=== PATIENT | male | born 1965 | race Caucasian/White ===

== ENCOUNTER 2019-04-18 10:15 | Observation (INO) ==
--- NOTE | 2019-04-04 12:59 | Anesthesiology Consultation ---
Date of Service April 04, 2019 Assessment & Plan Chart Review Chart Review: Acceptable Risk for Surgery and Patient NOT seen in Pre Admission Testing Consults Requested none History Surgery Operation Date: 04/18/19 13:10 Proposed Procedures p Right Shoulder Arthroscopy with Rotator Cuff Repair, Possible Superior Capsular Reconstruction - Ok Song MD Height/Weight Height: 5 ft 7 in Weight: 78.471 kg Allergies Allergy/AdvReac Type Severity Reaction Status Date / Time No Known Allergies Unverified 03/26/19 09:42 Medications Home Medications Medication Instructions Recorded Confirmed Last Taken fluticasone propionate 50 1 sprays INTNAS BID #9.9 gm 02/26/19 03/26/19 Unknown mcg/actuation nasal spray,suspension neomycin 3.5 mg-polymyxin 10,000 1 drops OP BID #7.5 ml 02/26/19 03/26/19 Unknown unit-hydrocort 10 mg/mL eye drop,susp Past Medical History Medical History No known health problems Past Surgical History Surgical History No history of previous surgery Social History Smoking Status: Never smoker Do You Dip or Chew Tobacco: No Hx Alcohol Use: Yes Alcohol type: beer, wine and hard liquor alcohol intake frequency: a few times a month Hx Substance Use: No substance use type: does not use Testing Laboratory Results WBC 6.34 H/H 14.5/42.5 PLT 247 NA 138 K 3.9 CL 104 CO2 26 BUN 22 CREATININE 1.24 GLUCOSE 90 Electrocardiogram Date: 03/29/19 Findings: + NSR @ (70 bpm) Chest X-Ray Date: 03/29/19 Findings: + NAD
--- NOTE | 2019-04-17 19:23 | History and Physical Report ---
DATE OF ADMISSION: 04/18/2019 CHIEF COMPLAINT: Chronic right shoulder pain. HISTORY OF PRESENT ILLNESS: This is a 53-year-old male patient of Dr. Song'lars complaining of chronic right shoulder pain and weakness, longstanding, now progressively getting worse. The patient has had multiple injuries, most recently in January, when he had a confrontation with a horse and his arm got pulled away from his body. MRI confirmed rotator cuff tear. The patient wished to proceed with a right shoulder arthroscopic rotator cuff repair versus possible superior capsular reconstruction. PAST MEDICAL HISTORY: The patient is a healthy 53-year-old male with no health problems. SOCIAL HISTORY: Nonsmoker, occasional drinker. PAST SURGICAL HISTORY: Negative. FAMILY HISTORY: Noncontributory. REVIEW OF SYSTEMS: Chronic right shoulder pain with an acute on chronic trauma and weakness. Otherwise, denies any shortness of breath, chest pain, nausea, vomiting or any other joint complaints. MEDICATIONS: Fluticasone propionate as directed and neomycin to the affected eye as directed. ALLERGIES: No known drug allergies. PHYSICAL EXAMINATION: GENERAL: Well-developed, well-nourished 53-year-old male in no acute distress. He is alert and oriented x3 and pleasant. HEENT: Normocephalic, atraumatic. Extraocular motions are intact. Pupils are equal and reactive to light. HEART: Regular rate and rhythm, no murmurs. LUNGS: Clear. ABDOMEN: Soft, nontender, bowel sounds present. EXTREMITIES: Right shoulder reveals full range of motion with pain. He has 3/5 strength with internal and external rotation. He has a positive belly press test. He has positive impingement maneuvering. NEUROLOGIC: Neurovascularly he is intact in his right upper extremity. DIAGNOSIS: Right shoulder rotator cuff tear. PLAN: The patient was advised of his diagnosis. Indications, risks, benefits, postop course have all been reviewed. The patient wished to proceed with a right shoulder arthroscopic rotator cuff repair with possible superior capsular reconstruction. Necessary consent forms, preoperative testing and clearances will be obtained.
[~2019-04-18 10:15] MED LIST: CEFAZOLIN 1000MG 1,000 MG/7.5 ML SYR IV SCH; LR 15ML/HR IV SCH; ROPIVACAINE 0.5% 5 MG/ML 30 ML VIAL ONE
[2019-04-18] MEDS ORDERED: PROPOFOL IV EMULSION 10 MG/ML 20 ML VIAL IV ONE (11:01)
[2019-04-18] MEDS ORDERED: fentaNYL citrate 100 MCG/2 ML VIAL ONE ×3 (11:01→19:09)
[2019-04-18] MEDS ORDERED: LIDOCAINE HCL 2% 2 ML VIAL/AMP(20MG/ML) INFIL ONE (11:01)
[2019-04-18] MEDS ORDERED: ROCURONIUM BROMIDE 10 MG/ML 5 ML VIAL ONE (11:01)
[2019-04-18] MEDS ORDERED: ONDANSETRON INJ 2 MG/ML 2 ML VIAL ONE ×2 (11:01→17:51)
[2019-04-18] MEDS ORDERED: MIDAZOLAM HCL 1 MG/ML 2ML VIAL ONE (11:01)
[2019-04-18] MEDS ORDERED: ATROPINE SULFATE 0.1 MG/ML 10ML SYR IV PRN (12:02)
[2019-04-18] MEDS ORDERED: ONDANSETRON INJ 2 MG/ML 2 ML VIAL IV PRN ×2 (12:02→20:30)
[2019-04-18] MEDS ORDERED: ePHEDrine sulfate 50 MG/ML AMP IV PRN (12:02)
--- NOTE | 2019-04-18 13:11 | History & Physical Bridge Note ---
Date of Service April 18, 2019 History & Physical Bridge Note I have examined the patient, reviewed the History & Physical and in the interval since the performance of the History & Physical I have noted the following changes of clinical significance: no changes noted
[2019-04-18] MEDS ORDERED: EPINEPHrine HCL INJ 1 MG/ML 30ML ONE (13:32)
[2019-04-18] MEDS ORDERED: CEFAZOLIN 250 MG/ML 1 GM VIAL ONE (17:51)
[2019-04-18] MEDS ORDERED: DEXAMETHASONE SOD INJ 4 MG/ML VIAL ONE (17:51)
[2019-04-18] MEDS ORDERED: NEOSTIGMINE METHYLSULFATE 5 MG/5 ML SYR ONE (18:32)
[2019-04-18] MEDS ORDERED: GLYCOPYRROLATE 0.2 MG/ML VIAL ONE (18:32)
--- NOTE | 2019-04-18 18:47 | Post Operative Brief Note ---
Immediate Post Op Note v1 Date of Surgery April 18, 2019 Pre & Post Diagnosis Operation Date: 04/18/19 12:55 Pre-Op Diagnosis: Right shoulder subacute on chronic rotator cuff tear subacromial impingement Post-Op Diagnosis: Right shoulder chronic appearing rotator cuff tear Chronic Retracted Partially Irrepairable with Biceps Tendon Rupture Subacromial Impingement I identified the patient and participated in the time-out.: Yes Procedure Operation Date: 04/18/19 12:55 Actual Procedures p Right Shoulder Arthroscopy with Rotator Cuff Repair, Superior Capsular Reconstruction and Subacromial Decompression(Right) - Ok Song MD Surgeon Ok Song MD Field Service Rep Ronnie RODRIGUEZ Estimated Blood Loss 20 Findings Consistent with Post-Op Diagnosis Specimens None Drains Antonio Catheter Anesthesia Type General Regional Complications none Disposition Accompanied Patient To Recovery: No Disposition: Recovery Room Overlapping Procedure I was immediately available: during the entire case.
[2019-04-18] MEDS: fentaNYL citrate 100 MCG/2 ML VIAL IV PRN ×4 (19:15→19:30)
[2019-04-18] MEDS ORDERED: HYDROmorphone INJ 2 MG/ML SYR/VIAL ONE (19:35)
[2019-04-18] MEDS: HYDROmorphone INJ 2 MG/ML SYR/VIAL IV PRN ×4 (19:36→19:51)
--- NOTE | 2019-04-18 20:01 | Anesthesiology Progress Note ---
Date of Service April 18, 2019 Anesthesia Post Procedure Vital Signs Vital Signs: Temp Pulse Pulse Resp BP Pulse Ox 04/18/19 19:55 81 17 125/67 96 04/18/19 19:45 81 17 124/76 97 04/18/19 19:35 78 15 128/73 98 04/18/19 19:25 73 16 120/76 100 04/18/19 19:15 75 17 98 04/18/19 19:05 18 98 04/18/19 18:58 36.2 C L 74 21 115/49 L 98 04/18/19 10:43 36.9 C 79 20 155/94 H 98 Pain Intensity Right Upper Chest: Pain Intensity: 5 Transfer of Care Handoff Completed per policy Notes Mental Status: alert / awake / arousable and participated in evaluation Patient Amnestic to Procedure: Yes Nausea / Vomiting: adequately controlled Pain: adequately controlled Airway Patency, RR, SpO2: stable & adequate BP & HR: stable & adequate Hydration State: stable & adequate Anesthetic Complications: no major complications apparent and Pt Satisfied with anesthetic care Notes: Block is functioning well.
[2019-04-18] MEDS ORDERED: NALOXONE HCL 0.4 MG/1 ML VIAL/CARP IV PRN (20:30)
[2019-04-18] MEDS ORDERED: SODIUM CHLORIDE 0.9% 1000ML 1,000 ML IV SCH (20:30)
[2019-04-18] MEDS ORDERED: MAGNESIUM HYDROXIDE SUSP 30 ML UDC PO PRN (20:30)
[2019-04-18] MEDS ORDERED: bisacodyL 10 MG SUPP PR PRN (20:30)
[2019-04-18] MEDS: HYDROmorphone INJ 0.5 MG/0.5 ML SYR IV PRN (20:55)
--- NOTE | 2019-04-18 21:27 | Operative Report ---
DATE OF OPERATION: 04/18/2019 INDICATION FOR PROCEDURE: A 53-year-old male who lives an active lifestyle. He had an injury to his shoulder in January of this year. He was worked up later with x-rays and MRI. 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 He does not have any marked proximal migration of the humerus. He on MRI has a large retracted rotator cuff tear of the supraspinatus and infraspinatus, looks like there is still some anterior supraspinatus rotator interval tissue intact. The biceps tendon appears to be ruptured and his subscapularis tendon is clearly torn and retracted. He has some arthritis in the AC joint and glenohumeral joint and some impingement. 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 PREOPERATIVE DIAGNOSES: Massive retracted rotator cuff tear, supraspinatus, subscapularis, infraspinatus, biceps rupture, impingement and arthritis of glenohumeral and acromioclavicular joint. POSTOPERATIVE DIAGNOSES: Chronic appearing rotator cuff tear with no components of any obvious acute tear with a subscapularis tendon tear with retraction, partially intact supraspinatus with otherwise retracted supraspinatus and infraspinatus tendons, which were irrepairable with subacromial impingement and mild arthritis of glenohumeral joint and acromioclavicular joint. Acromioclavicular joint is not causing any impingement. PROCEDURE: Right shoulder arthroscopic repair of the subscapularis tendon of the rotator cuff with superior capsular reconstruction using Arthrex human dermal skin graft with subacromial decompression and extensive debridement. SURGEON: Ok Song MD. DOWEL MACHINE OPERATOR: Ronnie Brooke PA-C. ANESTHESIA: Regional block and general. ESTIMATED BLOOD LOSS: 20 mL. DRAINS: None. Antonio catheter was placed. COMPLICATIONS: None. OPERATIVE PROCEDURE: The patient was taken to the operating room. A Antonio catheter was placed. Also placed under general and regional block anesthetic. He was positioned on a [facility] shoulder table in 70 degree beach chair position and his right shoulder was examined and demonstrated good passive range of motion. His right upper extremity was prepped and draped with ChloraPrep in usual sterile fashion. Arthroscopy was started with posterior arthroscopy portal in the soft spot. There was noted immediately that he had a large subscapularis tendon tear, so we made anterior lateral portal so we could access the subscapularis and a second anterior rotator interval portal for this portion of the procedure. Two arthroscopic working cannulas were placed. Subscapularis tendon was fairly thick tendon tissue and there was a thick comma tissue attached to the retracted supraspinatus tendon tear. The subscapularis tendon tissue in the upper portion was fairly thick, the lower portion was thin and attenuated, and the tear was retracted past the edge of the glenoid. There was a strip of supraspinatus tendon tissue anteriorly in the rotator interval area that was still attached to the greater tuberosity. This was maybe 1 cm to 15 mm wide, a thin type tissue there. The biceps tendon was torn and retracted. There were some mild degenerative changes of the labrum, mild osteoarthritis in the joint, significant subacromial bursitis. There was a thick CA ligament. He had type 1-2 acromion and had lateral subacromial spurs that were causing impingement. The AC joint was not causing any impingement. The teres minor was still intact. The entire infraspinatus was torn and retracted medially and the vast majority of the supraspinatus was torn and retracted medially except for the strand that we already discussed. Attention was first taken to the subscapularis repair. I prepared the footprint of the subscapularis of the lesser tuberosity arthroscopically using a suction shaver device and radiofrequency ablator. I released scarred bursa tissue on the bursal side of the subscapularis using a radiofrequency ablator and a suction shaver. We used an ablator to do capsular release underlying the subscapularis taking care not to go low below the muscular portion of the subscapularis to avoid injury to the axillary nerve. We stayed anteriorly on the bone of the glenoid. The base of the coracoid was ablated to release the capsule and scar tissue adjacent to the comma type tissue in the subscapularis so we could mobilize the subscapularis. When the subscapularis tendon was mobilized adequately to place a suture tape around it, I used an Arthrex SutureTape, placed through the bulk of the subscapularis tendon, placed traction on that, did more releases until we were able to mobilize the subscapularis, so we could pull the tendon over to just beyond the articular margin in neutral alignment. The second suture tape was placed in similar fashion and both suture tapes were placed out through an anterior cannula, then we switched the scope to the lateral portal and placed an Arthrex 5.5 x 19 mm SwiveLock BioComposite anchor in the footprint of the subscapularis to place the 2 tapes that I originally placed through this anchor and then it was fully seated and screwed tight and excess tapes were cut off to repair the subscapularis back to the lesser tuberosity. After that was completed, we went ahead and did a thorough subacromial debridement and identified intact the teres minor and irreparable posterior supraspinatus and infraspinatus, so we proceeded with the superior capsular reconstruction portion of the procedure. There were some significant bone spurs just posterior to the anterior most aspect of the acromion directed to the very lateral undersurface of the acromion process and I felt that these were causing impingement. So we went ahead and used a 5.5 bur to perform a decompression in that area. We did not take down the CA ligament and did a generalized smoothing of the undersurface of the acromion only. We left the AC joint alone as it did not appear to be causing any impingement. The greater tuberosity was then prepared using suction shaver device and radiofrequency ablator to remove any soft tissue off the greater tuberosity from the articular margin out the lateral greater tuberosity. Then the superior labrum was resected to facilitate a better fixation of the grafts on the superior glenoid. Then, through multiple portal sites including an Neviaser portal and a posterior accessory portal and one of the anterior lateral portals, 3 anchors were placed in the superior glenoid. The first anchor was placed at the base of the coracoid. A second anchor was placed in the 12 o'clock position on the glenoid and these were BioComposite SutureTak knotless anchors, 3 x 12.7 mm anchors. We then placed the posterior anchor in the posterior glenoid just above the teres minor. The angle of trajectory actually entangled the suture of the middle anchor, so we had to remove the sutures of the middle anchor. We had to readjust the posterior anchor more posteriorly and inferiorly into a better position with good fixation there, which was the second 3 x 12.7 BioComposite Arthrex knotless suture anchor. It had good fixation. The top anchor was then exchanged for a PEEK knotless corkscrew suture anchor, which had good fixation through the previous anchor hole superiorly. Then, we had a good fixation on the glenoid side with all sutures placed. Then, attention was taken to placing the medial row fixation sutures for the graft in the area of the infraspinatus and supraspinatus footprint. Two 4.7 x 19 mm Arthrex BioComposite anchors were placed, loaded with suture tapes in each anchor. At this time, by using the arthroscopic measuring device and the sutures in the joint, we were able to measure distances between all the anchors and holding the arm in about 20 degrees of abduction, the distance between the glenoid and the greater tuberosity, so we could fashion our graft. We did work through the lateral portal using a PassPort cannula in addition to the previous clear working cannula that was placed anteriorly. The graft was then fashioned using a scalpel to cut into the appropriate dimensions, which were 40 mm anterior to posterior on the medial side, 35 mm from posterior lateral to the greater tuberosity anchor and then 35 mm between lateral anchors and 45 mm anteriorly. It is a trapezoidal type graft. The holes were placed in the graft for placement of the suture tapes and then the individual sutures were brought out through the PassPort cannula. A Scorpion suture passer was used to make horizontal mattress sutures through the medial edge of the graft x3 for the knotless anchors and the suture tapes were placed through the lateral aspect of the graft. Then, the slack was taken out of the individual sutures as we passed the graft with the Arthrex graft passer into the subacromial space. Then, each individual suture was slowly tightened until the graft was laid down over the superior glenoid. These knotless suture anchors were fully tightened rolling the graft up over the top of the glenoid with good fixation anterior, medial and posterior. Then, the soft tissue grasper was placed on the tapes and the tapes were brought through the graft fully and then lateral row fixation was performed placing anterior, posterior tapes into anterior and posterior 4.75 x 19 mm SwiveLock anchors. This fixed the graft laterally. Further suturing between the small intact supraspinatus tendon tissue and the anterior graft was performed with a #2 FiberWire using a Chin locking knot 3 reverse half hitches in alternating posts and the posterior suture was placed between the graft in the teres minor closing that interval with similar suture. There was a good trampoline effect with no impingement after complete fixation of the graft. The multiple portal sites were closed with 2-0 nylon sutures. There was fluid extravasation around the shoulder of moderate severity but circulation in the extremity was intact. The patient was placed into a pillow sling immobilizer and sterile dressings were applied to the shoulder after the wounds were closed. The patient tolerated the procedure well. MICHAEL Montaño was my first mate. He functioned as first mate for the entire procedure. He assisted in patient positioning, arm positioning, suture management throughout the procedure and assisted me as a first mate as necessary through all aspects of the procedure and will participate in postoperative care of the patient. I attest to the content of the Intraoperative Record and any orders documented therein. Any exception s are noted below.
[2019-04-18] MEDS: DOCUSATE SODIUM 100 MG CAP PO SCH (21:35)
[2019-04-18] MEDS: SENNA 8.6 MG TAB PO SCH (21:35)
[2019-04-18] MEDS: ACETAMINOPHEN 500 MG TAB PO SCH (21:36)
[2019-04-18] MEDS: ASPIRIN 81 MG ECTAB PO SCH (21:36)
[2019-04-18] MEDS: OXYCODONE HCL IR 5 MG TAB (IMMEDIATE RELEASE) PO PRN (21:38)
[2019-04-18] MEDS ORDERED: COUGH DROP (SUGAR FREE) LOZ 24 LOZ/1 BOX BUCCAL ONE (22:23)
[2019-04-19] MEDS: OXYCODONE HCL IR 5 MG TAB (IMMEDIATE RELEASE) PO PRN ×5 (01:56→19:50)
[2019-04-19] MEDS: ACETAMINOPHEN 500 MG TAB PO SCH ×3 (05:58→20:56)
[2019-04-19] MEDS: ASPIRIN 81 MG ECTAB PO SCH ×2 (08:44→20:56)
[2019-04-19] MEDS: DOCUSATE SODIUM 100 MG CAP PO SCH ×2 (08:44→20:56)
[2019-04-19] MEDS: MULTIVITAMIN TAB PO SCH (08:44)
--- NOTE | 2019-04-19 08:51 | Orthopedic Progress Note ---
Date of Service April 19, 2019 Assessment & Plan (1) Status post rotator cuff repair: POD #1, Right RCR and Superior Capsular Reconstruction Sling at all times, may loosen for elbow motion only. Pain control. No PT needed until follow up. Ice as needed. D/C today. Subjective POD #1, Doing well, pain controlled so far. Denies SOB, CP, N/V. Plans to return home on discharge. Physical Exam Physical Exam: Right shoulder dressings c/d/i, no drainage, drain in tact. Sling in tact, fingers mobile. Results & Data Vital Signs (Past 12 Hours) Vital Signs Temp Pulse Resp BP BP Pulse Ox 04/19/19 07:31 36.8 C 72 17 125/77 95 04/19/19 03:20 36.7 C 73 16 116/70 96 04/18/19 23:30 36.3 C L 82 16 126/75 94 04/18/19 22:30 36.6 C 83 20 134/82 96 04/18/19 21:30 36.2 C L 84 18 143/78 H 97 04/18/19 21:00 36.8 C 81 20 155/90 H 96
[2019-04-19] MEDS: HYDROmorphone INJ 0.5 MG/0.5 ML SYR IV PRN ×2 (14:11→21:16)
[2019-04-19] MEDS: SENNA 8.6 MG TAB PO SCH (20:56)
[2019-04-20] MEDS: ACETAMINOPHEN 500 MG TAB PO SCH (05:09)
[2019-04-20] MEDS: OXYCODONE HCL IR 5 MG TAB (IMMEDIATE RELEASE) PO PRN ×2 (05:09→12:35)
[2019-04-20] MEDS: DOCUSATE SODIUM 100 MG CAP PO SCH (08:18)
[2019-04-20] MEDS: MULTIVITAMIN TAB PO SCH (08:18)
[2019-04-20] MEDS: ASPIRIN 81 MG ECTAB PO SCH (08:18)
--- NOTE | 2019-04-20 11:05 | Orthopedic Progress Note ---
Date of Service April 20, 2019 Assessment & Plan (1) Status post rotator cuff repair: POD #2, Right RCR and Superior Capsular Reconstruction Sling at all times, may loosen for elbow motion only. Pain control. No PT needed until follow up. Ice as needed. D/C today. Subjective Patient currently sitting up in bed awake and alert. No complaints. Pain is controlled at this time. Patient is hoping to go home. Physical Exam Physical Exam: Dressings removed. Incision is benign. Good range of motion at the right elbow wrist and fingers. Sensation intact. Capillary refill is less than 2 seconds. Results & Data Vital Signs (Past 12 Hours) Vital Signs Temp Pulse Resp BP Pulse Ox 04/20/19 07:44 37.1 C 78 16 157/97 H 96 04/19/19 23:50 36.6 C 04/19/19 23:42 37.4 C 78 17 138/82 95
--- NOTE | 2019-04-30 16:28 | Discharge Summary ---
HISTORY OF PRESENT ILLNESS: This is a 53-year-old male patient of Dr. Song's complaining of chronic right shoulder pain and weakness, longstanding, now progressively getting worse. The patient has had multiple injuries, most recently in January. MRI confirmed rotator cuff tear. The patient wished to proceed with a right shoulder arthroscopic rotator cuff repair versus possible superior capsular reconstruction. PAST MEDICAL HISTORY: The patient is a healthy 53-year-old male with no health problems. POSTOPERATIVE COURSE: The patient underwent a right shoulder arthroscopy, subacromial decompression, rotator cuff repair and superior capsular reconstruction on 04/18/2019. He was followed closely with medical consultation and pain control. No physical therapy at this point in time. The patient did have some pain issues on postoperative day #1. We did keep him another day. On postoperative day 2 his pain had resolved to a comfortable level with oral medications. He was discharged on postoperative day #2 to home. PHYSICAL EXAMINATION: On discharge, right shoulder portals were clean, dry and intact. There was no redness or drainage. He had good elbow motion. Fingers were mobile. Sling was intact. Neurologically and neurovascularly he was intact in his right upper extremity. DIAGNOSES: Status post right shoulder arthroscopic subacromial decompression, rotator cuff repair and superior capsular reconstruction. PLAN: The patient will be discharged home. No physical therapy at this point in time. He will continue his preadmission medications with the addition of pain medications. He will follow up as an outpatient as scheduled with Dr. Song.
== END 2019-04-20 13:48 | disposition home or self-care (01) ==
LOC: ASU 10:15 → 3E 10:15